=== PATIENT | male | born 1965 | race Caucasian/White ===

== ENCOUNTER 2020-05-07 05:22 | Emergency (ER) | payer BC, SELFPAY ==
[2020-05-07 05:27] VITALS: BP 120/68; PULSE 81; RESP 24; TEMP 36.6; O2SAT 95; BMI 33.7
--- NOTE | 2020-05-07 05:52 | XR_ITS ---
WS: [id number] Exam: XR chest 1V portable [id number] Date/Time of Exam: 05/07/2020 6:09 AM Reason For Exam: chest pain Comparison 03/25/2017. Findings: The lungs are clear and fully expanded. Costophrenic angles are sharp. No infiltrates. Bronchovascula r relief appears normal. Cardiac silhouette is unremarkable. Bony elements are intact. XR/XR chest 1V portable [id number] IMPRESSION: Unremarkable chest radiograph.
--- NOTE | 2020-05-07 05:53 | ED_ITS ---
Documented by User: Amarilis Agudelo MD 05/07/20 05:54 HPI - Chest Pain General: Chief Complaint: Chest Pain Stated Complaint: difficulty breathing Time Seen by Provider: 05/07/20 05:51 Source: patient Mode of arrival: ambulatory Limitations: no limitations History of Present Illness: HPI narrative: 55-year-old male with a history of hypertension was woken up with chest pain or shortness of breath approximately 30 minutes prior to arrival. complaint: chest pain and chest discomfort PFS ED PFSH: Medical History (Updated 05/07/20 @ 09:05 by Amarilis Cordova MD) Depression GERD (gastroesophageal reflux disease) Gout Hypertension Family History Father Cancer lung Other Hypertension Denies family history of CAD (coronary artery disease) Anesthesia complication Bleeding disorder Social History Smoking and tobacco status: never smoked Alcohol intake: current Alcohol intake frequency: holidays/special occasions only Household members: spouse Marital status: Current occupational status: employed History of recent travel: No Course Vital Signs: Vital signs: Vital Signs Temperature 97.9 F 05/07/20 05:27 Pulse Rate 81 05/07/20 07:26 Respiratory Rate 17 05/07/20 07:26 Blood Pressure 133/75 05/07/20 07:26 Pulse Oximetry 91 05/07/20 07:26 MDM - Chest Pain Lab Data: Labs: Lab Results 05/07/20 05/07/20 05/07/20 Range/Units 05:36 05:36 05:36 WBC 7.2 (4.0-10.0) 10^3/ uL RBC 5.05 (4.1-5.3) 10^6/u L Hgb 15.6 (11.7-16.6) g/dL Hct 46.1 (42.0-52.0) % MCV 91.3 (80-94) fL MCH 30.9 (28.0-34.0) pg MCHC 33.8 (30.0-36.0) g/dL RDW 12.4 (12.1-15.1) % Plt Count 351 (130-400) 10^3/c mm MPV 10.5 H (7.4-10.4) fL Neut % (Auto) 48.1 % Lymph % (Auto) 38.1 % [place] % (Auto) 8.5 % Eos % (Auto) 3.8 % Baso % (Auto) 1.1 % Neut # (Auto) 3.47 (1.8-7.7) 10^3/u L Lymph # (Auto) 2.7 (0.8-4.8) 10^3/u L [place] # (Auto) 0.6 (0.2-0.9) 10^3/u L Eos # (Auto) 0.3 (0.0-0.8) 10^3/u L Baso # (Auto) 0.1 (0.0-0.1) 10^3/u L Nucleated RBC % (a uto) 0 % Nucleated RBCs # 0.0 /100WBC Sodium 135 L (136-145) mmol/L Potassium 3.8 (3.5-5.1) mmol/L Chloride 95 L (98-107) mmol/L Carbon Dioxide 25 (22-29) mmol/L Anion Gap 18.8 (5-19) BUN 16 (6-20) mg/dL Creatinine 1.4 H (0.7-1.2) mg/dL GFR Calculation 53.0 L (90-130) mL/min Glucose 131 H (65-115) mg/dL Calculated Osmolal ity 283 L (285-295) mOsm/k g Calcium 9.2 (8.5-10.5) mg/dL Magnesium 1.9 (1.7-2.3) mg/dL Total Bilirubin 0.5 (0.15-1.2) mg/dL AST 31 (0-40) U/L ALT 43 H (0-41) U/L Alkaline Phosphata se 89 (40-130) IU/L Troponin T Baselin e 10 (0-15) ng/L Troponin T 120 Min eugenio (0-15) ng/L Delta Troponin T (0-10) ABS# NT-Pro-B Natriuret Pep 18 (0-125) pg/mL Total Protein 7.3 (6.6-8.7) g/dL Albumin 4.4 (3.5-5.2) g/dL Globulin 2.9 (1.3-4.6) g/dL Urine Color (Yellow) Urine Appearance (CLEAR) Urine pH (5-7) Ur Specific Gravit y (1.005-1.030) Urine Protein (Negative) Urine Glucose (UA) (Normal) Urine Ketones (Negative) Urine Blood (Negative) Urine Nitrate (Negative) Urine Bilirubin (Negative) Urine Urobilinogen (Negative) mg/dL Ur Leukocyte Chandni ase (Negative) 05/07/20 05/07/20 Range/Units 07:20 07:44 WBC (4.0-10.0) 10^3/ uL RBC (4.1-5.3) 10^6/u L Hgb (11.7-16.6) g/dL Hct (42.0-52.0) % MCV (80-94) fL MCH (28.0-34.0) pg MCHC (30.0-36.0) g/dL RDW (12.1-15.1) % Plt Count (130-400) 10^3/c mm MPV (7.4-10.4) fL Neut % (Auto) % Lymph % (Auto) % [place] % (Auto) % Eos % (Auto) % Baso % (Auto) % Neut # (Auto) (1.8-7.7) 10^3/u L Lymph # (Auto) (0.8-4.8) 10^3/u L [place] # (Auto) (0.2-0.9) 10^3/u L Eos # (Auto) (0.0-0.8) 10^3/u L Baso # (Auto) (0.0-0.1) 10^3/u L Nucleated RBC % (a uto) % Nucleated RBCs # /100WBC Sodium (136-145) mmol/L Potassium (3.5-5.1) mmol/L Chloride (98-107) mmol/L Carbon Dioxide (22-29) mmol/L Anion Gap (5-19) BUN (6-20) mg/dL Creatinine (0.7-1.2) mg/dL GFR Calculation (90-130) mL/min Glucose (65-115) mg/dL Calculated Osmolal ity (285-295) mOsm/k g Calcium (8.5-10.5) mg/dL Magnesium (1.7-2.3) mg/dL Total Bilirubin (0.15-1.2) mg/dL AST (0-40) U/L ALT (0-41) U/L Alkaline Phosphata se (40-130) IU/L Troponin T Baselin e (0-15) ng/L Troponin T 120 Min eugenio 7.25 (0-15) ng/L Delta Troponin T -2.75 L (0-10) ABS# NT-Pro-B Natriuret Pep (0-125) pg/mL Total Protein (6.6-8.7) g/dL Albumin (3.5-5.2) g/dL Globulin (1.3-4.6) g/dL Urine Color Yellow (Yellow) Urine Appearance Clear (CLEAR) Urine pH 5 (5-7) Ur Specific Gravit y 1.010 (1.005-1.030) Urine Protein Neg (Negative) Urine Glucose (UA) Norm (Normal) Urine Ketones Negative (Negative) Urine Blood Neg (Negative) Urine Nitrate Negative (Negative) Urine Bilirubin Neg (Negative) Urine Urobilinogen Norm (Negative) mg/dL Ur Leukocyte Chandni ase Negative (Negative) Discharge Plan Discharge Patient Disposition: Home Clinical Impression: Anxiety Chest pain Qualifiers: Chest pain type: unspecified Qualified Code(s): R07.9 - Chest pain, unspecified Condition: Stable Prescriptions: New hydroxyzine HCl 50 mg tablet 50 mg PO Q6H PRN (Reason: anxiety) Qty: 20 RF: 0 No Action lisinopril 10 mg tablet 10 mg PO DAILY RF: 0 esomeprazole magnesium [Nexium] 40 mg capsule,delayed release(DR/EC) 40 mg PO DAILY RF: 0 allopurinol 100 mg tablet 100 mg PO DAILY RF: 0 ibuprofen 800 mg tablet 800 mg PO TID PRNRF: 0 citalopram [Celexa] 20 mg tablet 20 mg PO DAILY RF: 0 Discharge Orders: Discharge ED (Routine); Ordered 05/07/20 Ordered By: Amarilis Cordova Referrals: Lisa Gonsales APN [Primary Care Provider] - Discharge Diet: Usual diet Discharge Activity: Resume usual activity Patient Instructions: Chest Pain (ED), Opioid Safety Activity Restrictions/Additional Instructions: Follow up with your primary care provider to discuss the need for further testing on your heart - even though the tests today were normal. Also discuss management of stress and anxiety. You may use the hydroxyzine as needed for anxiety until you see her. Return to the ED immediately if further episodes of chest pain or shortness of breath. Coding Level of Care Code ED Yarn Finisher for Anne-Marie Fwd Exam Comprehensive Documented by User: Amarilis Cordova MD 05/07/20 09:24 HPI - Chest Pain General: Chief Complaint: Chest Pain Stated Complaint: difficulty breathing Time Seen by Provider: 05/07/20 05:51 History of Present Illness: HPI narrative: This patient is a 55 year old male presenting with chest pain that started at about 4:45 this morning while he was driving to work. He describes it as sharp and he got lightheaded, nauseous and maybe a bit sweaty. He also got short of breath. The sharp chest pain lasted for about 30 minutes and is now gone - although his chest still feels tight. He is still feeling like he can't get enough air. He has never had anything like this and has not had any heart problems in the past. He does tell me that he is full of hate today. Apparently there is another employee at his job that has really upset him. He says that he is so upset by whatever happened that he hasn't eaten in two days and admits that he drank too much beer last night. He denies recent illness. complaint: chest pain Onset (ago): hour(s) (1) Timing of current episode: constant Prior episodes: No Onset: during rest Pain location: left chest Pain radiation: none Severity: severe Quality: sharp Relieving factors: nothing Exacerbating factors: nothing Associated symptoms: Reports diaphoresis, dyspnea, nausea and other (lightheadedness) Treatment prior to arrival: none Review of Systems General: Reports: 10 or more systems reviewed and unremarkable except in HPI and below Const: Reports: diaphoresis Eyes: Denies: change in vision ENMT: Denies: odynophagia Card: Denies: chest pain or swelling of feet/ankles Resp: Reports: dyspnea GI: Reports: nausea : Denies: flank pain Musc: Denies: neck pain or back pain Skin/Breast: Denies: rash Neuro: Denies: headache(s), numbness in extremities or weakness in extremities Psych: Reports: anxiety, sleeping less and irritability; Denies: suicidal ideation or homicidal ideation Iker/Lymph: Denies: easy bruising or easy bleeding PFSH ED PFSH: Medical History (Updated 05/07/20 @ 09:05 by Amarilis Cordova MD) Depression GERD (gastroesophageal reflux disease) Gout Hypertension Family History Father Cancer lung Other Hypertension Denies family history of CAD (coronary artery disease) Anesthesia complication Bleeding disorder Social History Smoking and tobacco status: never smoked Alcohol intake: current Alcohol intake frequency: holidays/special occasions only Household members: spouse Marital status: Current occupational status: employed History of recent travel: No Physical Exam Const: COMMON NORMALS: patient oriented x3, no limitations and alert GENERAL APPEARANCE: cooperative, comfortable, in distress and anxious HENMT: HEAD & SCALP: normal to inspection FACE & SINUS: normal facial exam Eye: GENERAL EYE: appearance normal, both eyes and all related structures Neck/C-Spine: COMMON NORMALS: supple, no meningeal signs and no JVD Chest: COMMONS NORMALS: normal inspection of the chest Resp: COMMON NORMALS: normal respiratory effort, No use of accessory muscles and clear to auscultation bilaterally AUSCULTATION: clear to auscultation bilaterally Cardio: COMMON NORMALS: no JVD, regular rate, regular rhythm and No murmurs present (Cardio) RATE: regular rate RHYTHM: regular rhythm GI: COMMON NORMALS: Normal to inspection, nondistended, normoactive bowel sounds present, Soft to palpation and non-tender INSPECTION: Yes normal to inspection AUSCULTATION: Yes normoactive bowel sounds PALPATION: Yes Soft to palpation Back/Pelvis: COMMON NORMALS: thoracic and lumbar spine normal to inspection Extremity: COMMON NORMALS: normal to inspection Neuro: COMMON NORMALS: patient oriented x3, moves all extremities, no focal motor deficits and no sensory deficits noted SENSORIUM/ORIENTATION: Yes alert MENINGEAL SIGNS: Yes no meningeal signs Psych: COMMON NORMALS: mental status grossly normal, cooperative and normal affect Skin: COMMON NORMALS: no rashes or lesions noted and turgor normal GENERAL SKIN EXAM: no rashes or lesions noted, turgor normal and other (mild diaphoresis) Course Vital Signs: Vital signs: Vital Signs Temperature 97.9 F 05/07/20 05:27 Pulse Rate 81 05/07/20 07:26 Respiratory Rate 17 05/07/20 07:26 Blood Pressure 133/75 05/07/20 07:26 Pulse Oximetry 91 05/07/20 07:26 MDM - Chest Pain MDM Narrative: Medical decision making narrative: Generally healthy 55 year old male presenting with chest pain and shortness of breath in the setting of emotional upset. EKG x 2 normal. Troponins x2 normal with a neg delta. He felt better in the ED and his symptoms completely resolved. I had ordered nitro but his pain was gone so it was not given. I suspect this was related to stress and anxiety - and we discussed management of that as well as importance of follow up with his PCP both for that and to have further evaluation of the chest pain. I strongly encouraged this to the both the patient and his and explained that although the tests were normal today, that does not rule out impending heart issues or CAD. Lab Data: Labs: Lab Results 05/07/20 05/07/20 05/07/20 Range/Units 05:36 05:36 05:36 WBC 7.2 (4.0-10.0) 10^3/ uL RBC 5.05 (4.1-5.3) 10^6/u L Hgb 15.6 (11.7-16.6) g/dL Hct 46.1 (42.0-52.0) % MCV 91.3 (80-94) fL MCH 30.9 (28.0-34.0) pg MCHC 33.8 (30.0-36.0) g/dL RDW 12.4 (12.1-15.1) % Plt Count 351 (130-400) 10^3/c mm MPV 10.5 H (7.4-10.4) fL Neut % (Auto) 48.1 % Lymph % (Auto) 38.1 % [place] % (Auto) 8.5 % Eos % (Auto) 3.8 % Baso % (Auto) 1.1 % Neut # (Auto) 3.47 (1.8-7.7) 10^3/u L Lymph # (Auto) 2.7 (0.8-4.8) 10^3/u L [place] # (Auto) 0.6 (0.2-0.9) 10^3/u L Eos # (Auto) 0.3 (0.0-0.8) 10^3/u L Baso # (Auto) 0.1 (0.0-0.1) 10^3/u L Nucleated RBC % (a uto) 0 % Nucleated RBCs # 0.0 /100WBC Sodium 135 L (136-145) mmol/L Potassium 3.8 (3.5-5.1) mmol/L Chloride 95 L (98-107) mmol/L Carbon Dioxide 25 (22-29) mmol/L Anion Gap 18.8 (5-19) BUN 16 (6-20) mg/dL Creatinine 1.4 H (0.7-1.2) mg/dL GFR Calculation 53.0 L (90-130) mL/min Glucose 131 H (65-115) mg/dL Calculated Osmolal ity 283 L (285-295) mOsm/k g Calcium 9.2 (8.5-10.5) mg/dL Magnesium 1.9 (1.7-2.3) mg/dL Total Bilirubin 0.5 (0.15-1.2) mg/dL AST 31 (0-40) U/L ALT 43 H (0-41) U/L Alkaline Phosphata se 89 (40-130) IU/L Troponin T Baselin e 10 (0-15) ng/L Troponin T 120 Min eugenio (0-15) ng/L Delta Troponin T (0-10) ABS# NT-Pro-B Natriuret Pep 18 (0-125) pg/mL Total Protein 7.3 (6.6-8.7) g/dL Albumin 4.4 (3.5-5.2) g/dL Globulin 2.9 (1.3-4.6) g/dL Urine Color (Yellow) Urine Appearance (CLEAR) Urine pH (5-7) Ur Specific Gravit y (1.005-1.030) Urine Protein (Negative) Urine Glucose (UA) (Normal) Urine Ketones (Negative) Urine Blood (Negative) Urine Nitrate (Negative) Urine Bilirubin (Negative) Urine Urobilinogen (Negative) mg/dL Ur Leukocyte Chandni ase (Negative) 05/07/20 05/07/20 Range/Units 07:20 07:44 WBC (4.0-10.0) 10^3/ uL RBC (4.1-5.3) 10^6/u L Hgb (11.7-16.6) g/dL Hct (42.0-52.0) % MCV (80-94) fL MCH (28.0-34.0) pg MCHC (30.0-36.0) g/dL RDW (12.1-15.1) % Plt Count (130-400) 10^3/c mm MPV (7.4-10.4) fL Neut % (Auto) % Lymph % (Auto) % [place] % (Auto) % Eos % (Auto) % Baso % (Auto) % Neut # (Auto) (1.8-7.7) 10^3/u L Lymph # (Auto) (0.8-4.8) 10^3/u L [place] # (Auto) (0.2-0.9) 10^3/u L Eos # (Auto) (0.0-0.8) 10^3/u L Baso # (Auto) (0.0-0.1) 10^3/u L Nucleated RBC % (a uto) % Nucleated RBCs # /100WBC Sodium (136-145) mmol/L Potassium (3.5-5.1) mmol/L Chloride (98-107) mmol/L Carbon Dioxide (22-29) mmol/L Anion Gap (5-19) BUN (6-20) mg/dL Creatinine (0.7-1.2) mg/dL GFR Calculation (90-130) mL/min Glucose (65-115) mg/dL Calculated Osmolal ity (285-295) mOsm/k g Calcium (8.5-10.5) mg/dL Magnesium (1.7-2.3) mg/dL Total Bilirubin (0.15-1.2) mg/dL AST (0-40) U/L ALT (0-41) U/L Alkaline Phosphata se (40-130) IU/L Troponin T Baselin e (0-15) ng/L Troponin T 120 Min eugenio 7.25 (0-15) ng/L Delta Troponin T -2.75 L (0-10) ABS# NT-Pro-B Natriuret Pep (0-125) pg/mL Total Protein (6.6-8.7) g/dL Albumin (3.5-5.2) g/dL Globulin (1.3-4.6) g/dL Urine Color Yellow (Yellow) Urine Appearance Clear (CLEAR) Urine pH 5 (5-7) Ur Specific Gravit y 1.010 (1.005-1.030) Urine Protein Neg (Negative) Urine Glucose (UA) Norm (Normal) Urine Ketones Negative (Negative) Urine Blood Neg (Negative) Urine Nitrate Negative (Negative) Urine Bilirubin Neg (Negative) Urine Urobilinogen Norm (Negative) mg/dL Ur Leukocyte Chandni ase Negative (Negative) Discharge Plan Discharge Patient Disposition: Home Clinical Impression: Anxiety Chest pain Qualifiers: Chest pain type: unspecified Qualified Code(s): R07.9 - Chest pain, unspecified Condition: Stable Prescriptions: New hydroxyzine HCl 50 mg tablet 50 mg PO Q6H PRN (Reason: anxiety) Qty: 20 RF: 0 No Action lisinopril 10 mg tablet 10 mg PO DAILY RF: 0 esomeprazole magnesium [Nexium] 40 mg capsule,delayed release(DR/EC) 40 mg PO DAILY RF: 0 allopurinol 100 mg tablet 100 mg PO DAILY RF: 0 ibuprofen 800 mg tablet 800 mg PO TID PRNRF: 0 citalopram [Celexa] 20 mg tablet 20 mg PO DAILY RF: 0 Discharge Orders: Discharge ED (Routine); Ordered 05/07/20 Ordered By: Amarilis Cordova Referrals: Dru,DON Gonzalez [Primary Care Provider] - Discharge Diet: Usual diet Discharge Activity: Resume usual activity Patient Instructions: Chest Pain (ED), Opioid Safety Activity Restrictions/Additional Instructions: Follow up with your primary care provider to discuss the need for further testing on your heart - even though the tests today were normal. Also discuss management of stress and anxiety. You may use the hydroxyzine as needed for anxiety until you see her. Return to the ED immediately if further episodes of chest pain or shortness of breath. Coding Level of Care Code ED Yarn Finisher for Chg Fwd Exam Comprehensive
[2020-05-07 06:01] LABS: Basophils # 0.1 10^3/uL (0.0-0.1); Basophils % 1.1 %; Eosinophils # 0.3 10^3/uL (0.0-0.8); Eosinophils % 3.8 %; Hematocrit 46.1 % (42.0-52.0); Hemoglobin 15.6 g/dL (11.7-16.6); Lymphocytes # 2.7 10^3/uL (0.8-4.8); Lymphocytes % 38.1 %; Mean Corpuscular HGB Conc 33.8 g/dL (30.0-36.0); Mean Corpuscular Hemoglobin 30.9 pg (28.0-34.0); Mean Corpuscular Volume 91.3 fL (80-94); Mean Platelet Volume 10.5 fL (7.4-10.4); Monocytes # 0.6 10^3/uL (0.2-0.9); Monocytes % 8.5 %; Neutrophils # 3.47 10^3/uL (1.8-7.7); Neutrophils % 48.1 %; Nucleated Red Blood Cells % 0 %; Platelet Count 351 10^3/cmm (130-400); Red Blood Count 5.05 10^6/uL (4.1-5.3); Red Cell Distribution Width 12.4 % (12.1-15.1); White Blood Count 7.2 10^3/uL (4.0-10.0)
[2020-05-07 06:20] LABS: Troponin(5th) Baseline 10 ng/L (0-15)
[2020-05-07 06:29] LABS: Alanine Aminotransferase 43 U/L (0-41); Albumin Level 4.4 g/dL (3.5-5.2); Alkaline Phosphatase 89 IU/L (40-130); Anion Gap 18.8 (5-19); Aspartate Amino Transferase 31 U/L (0-40); Blood Urea Nitrogen 16 mg/dL (6-20); Calcium 9.2 mg/dL (8.5-10.5); Carbon Dioxide 25 mmol/L (22-29); Chloride 95 mmol/L (98-107); Globulin 2.9 g/dL (1.3-4.6); Glucose 131 mg/dL (65-115); Magnesium 1.9 mg/dL (1.7-2.3); NT Pro B Type Natriuretic Pept 18 pg/mL (0-125); Osmolality Calculated 283 mOsm/kg (285-295); Potassium 3.8 mmol/L (3.5-5.1); Sodium 135 mmol/L (136-145); Total Bilirubin 0.5 mg/dL (0.15-1.2); Total Protein 7.3 g/dL (6.6-8.7)
[2020-05-07 06:31] VITALS: BP 141/84; PULSE 76; RESP 18; O2SAT 94
[2020-05-07] MEDS: LORazepam 2 mg/mL INJ 1 mL 0.5 MG IVP (06:31)
[2020-05-07] MEDS: aspirin 81 mg Chew Tablet 324 MG PO (06:32)
[2020-05-07 06:40] LABS: Creatinine Clr Calc Pharmacy 86.0402
[2020-05-07 07:26] VITALS: BP 133/75; PULSE 81; RESP 17; O2SAT 91
[2020-05-07] MEDS: sodium chloride 0.9% 500 ML 999 ML IV (07:49)
--- NOTE | 2020-05-07 07:52 | ECG_ITS ---
[facility] Test Date: 2020-05-07 Pat Name: Nilson Gibbons Department: Room: Gender: Male Adobe Layer Helper: : 1965 Requested By: Amarilis Agudelo Order Number: [id number] Marilia MD: Berny Chang M.D. Measurements Intervals [place] Rate: 72 P: 40 CT: 191 QRS: -19 QRSD: 121 T: 12 QT: 407 QTc: 447 Interpretive Statements SINUS RHYTHM MODERATE INTRAVENTRICULAR CONDUCTION DELAY [110+ ms QRS DURATION] MODERATE VOLTAGE CRITERIA FOR LVH, CONSIDER NORMAL VARIANT [MEETS CRITERIA IN ONE OF: R(aVL), S(V1), R(V5), R(V5/V6)+S(V1)] No previous ECG available for comparison Electronically Signed On 05-07-2020 17:56:03 CDT by Berny Chang M.D. [email or web address]
[2020-05-07 07:58] LABS: Add Urine Microscopic? NO
[2020-05-07 08:08] LABS: Bilirubin Urine Neg (Negative); Blood Urine Neg (Negative); Glucose Urine UA Norm (Normal); Ketones Urine Negative (Negative); Leukocyte Esterase Urine Negative (Negative); Nitrate Urine Negative (Negative); Protein Urine Neg (Negative); Urine Appearance Clear (CLEAR); Urine Color Yellow (Yellow); Urobilinogen Urine Norm (Negative); pH Urine 5 (5-7)
[2020-05-07 08:39] LABS: Troponin 5 2HR 7.25 ng/L (0-15)
[2020-05-07 08:40] LABS: Troponin 5 2HR Delta -2.75 ABS# (0-10)
[2020-05-07 09:20] VITALS: BP 126/79; PULSE 69; RESP 16; O2SAT 95
== END 2020-05-07 09:16 | disposition home or self-care (01) ==
PROVIDERS: Family Medicine; Emergency Provider Emergency Medicine; PCP Nurse Practitioner Family
DX: R07.9 Chest pain, unspecified (principal); F41.9 Anxiety disorder, unspecified; I10 Essential (primary) hypertension
CPT/HCPCS: 71045; 80053; 81003; 83735; 83880; 84484; 85025; 93005; 96374; 99284; J2060; J7040

== ENCOUNTER 2020-05-14 16:07 | Outpatient (CLI) | payer BC, SELFPAY ==
--- NOTE | 2020-05-14 | XR_ITS ---
WS: [id number] Lumbar spine, 3 views, 05/14/2020 Clinical Data: BACK PAIN Comparison: Lumbar spine, 01/30/2017. Findings: No compression fractures or subluxation is seen. Disc space narrowing is seen at L1-L2, L2-L3 and L3- L4. Anterior osteophytes are present from L1 through L4. The transverse processes and SI joints are n ormal. XR/XR lumbar spine 2-3V* [id number] Impression: 1. Degenerative disc narrowing at L1-L2, L2-L3 and L3-L4. 2. Anterior osteophytes from L1 through L4.
== END 2020-05-14 16:08 | disposition home or self-care (01) ==
PROVIDERS: PCP Nurse Practitioner Family; Visit Provider Nurse Practitioner Family
DX: M54.5 Low back pain (principal); M25.78 Osteophyte, vertebrae
CPT/HCPCS: 72100

== ENCOUNTER → 2020-06-10 09:48 | Outpatient (BNVA) | payer BC, SELFPAY | PROVIDERS: PCP Nurse Practitioner Family; Visit Provider Orthopaedic Surgery | DX: M54.5 Low back pain (principal) | CPT/HCPCS: 72120 ==